=== PATIENT | female | born 1985 | race Caucasian/White ===

== ENCOUNTER 2018-12-10 15:55 | Emergency (ER) | payer MEDICAID ==
[~2018-12-10] VITALS: Ht 152.4 cm; Wt 58.6 kg
[~2018-12-10 15:55] MED LIST: NITR-58 PO; OMEP40CA3 PO; PREN1TAB49 PO
[2018-12-10 16:06] VITALS: Ht 152.4 cm; Wt 58.6 kg
--- NOTE | 2018-12-10 18:35 | ERD ---
ER Documentation Chief Complaint Chief Complaint cough x3 days, abdominal pain 14wks, denies bleeding HPI 33-year-old female in her 14th week of presents with complaint of abdominal pain for the past 3 days. States that the pain is located in the lower left and right quadrant bilaterally. In addition she states she is been having some yellowish vaginal discharge. She also is having dysuria but denies hematuria. Says she had fevers yesterday of 101 but denies any current treatments. LMP was September 11, 2018. Denies any drooling, trismus, vomiting, diarrhea. ROS All systems reviewed and are negative except as per history of present illness. Medications Home Meds Active Scripts Cephalexin* (Keflex*) 500 Mg Capsule, 500 MG PO BID for 14 Days, CAP Prov:SHRUTHI CLAIRE 12/10/18 Nitrofurantoin Monohyd Macrocr* (Macrobid*) 100 Mg Capsr, 100 MG PO BID, #28 CAP Prov:MIRNA,PEDRO C 01/13/15 Omeprazole* (Prilosec*) 40 Mg Capsule.dr, 40 MG PO BID for 30 Days, CAP Prov:MIRNA,PEDRO C 01/13/15 Reported Medications Vits W-Ca,Fe,Fa(<1MG) () 1 Tab Tablet, PO DAILY 11/19/11 Allergies Allergies: Coded Allergies: No Known Drug Allergies (Verified Allergy, 11/19/11) PMhx/Soc Medical and Surgical Hx: pt denies Medical Hx, pt denies Surgical Hx History of Surgery: No Anesthesia Reaction: No Hx Neurological Disorder: No Hx Respiratory Disorders: No Hx Cardiac Disorders: No Hx Psychiatric Problems: No Hx Miscellaneous Medical Probl: No Hx Alcohol Use: No Hx Substance Use: No Hx Tobacco Use: No Smoking Status: Never smoker FmHx Family History: No diabetes, No coronary disease, No other Physical Exam Vitals Vital Signs Date Temp Pulse Resp B/P (MAP) Pulse Ox O2 O2 Flow FiO2 Time Delivery Rate 12/10/18 98.6 62 18 121/65 99 Room Air 21:20 (83) 12/10/18 98.6 68 18 123/56 98 16:06 (78) Physical Exam Const: No acute distress Head: Atraumatic Eyes: Normal Conjunctiva ENT: Normal External Ears, Nose and Mouth. Tonsils are nonedematous erythematous bilaterally with no exudates. Uvula is midline. There are no peritonsillar masses noted. Neck: Full range of motion. No meningismus. Resp: Clear to auscultation bilaterally Cardio: Regular rate and rhythm, no murmurs Abd: Tenderness to palpation in the bilateral lower and right quadrants. Skin: No petechiae or rashes Back: Left-sided CVA tenderness. Ext: No cyanosis, or edema Neur: Awake and alert Psych: Normal Mood and Affect Pelvic: Performed human resources executive assistant present. There was thin white discharge noted in the vaginal canal. There was no cervical motion tenderness. The os was pink without any erythema Result Diagram: 12/10/181850 Results 24 hrs Laboratory Tests Test 12/10/18 18:45 12/10/18 18:51 Urine Color STRAW Urine Clarity CLEAR Urine pH 6.0 Urine Specific [place] 1.004 Urine Ketones NEGATIVE mg/dL Urine Nitrite NEGATIVE mg/dL Urine Bilirubin NEGATIVE mg/dL Urine Urobilinogen NEGATIVE mg/dL Urine Leukocyte Esterase NEGATIVE Blake/ul Urine Microscopic RBC 6 /HPF Urine Microscopic WBC 1 /HPF Urine Squamous Epithelial Cells FEW /HPF Urine Bacteria FEW /HPF Urine Hemoglobin 2+ mg/dL Urine Glucose NEGATIVE mg/dL Urine Total Protein NEGATIVE mg/dl White Blood Count 12.3 10^3/ul Red Blood Count 4.19 10^6/ul Hemoglobin 12.1 g/dl Hematocrit 36.2 % Mean Corpuscular Volume 86.4 fl Mean Corpuscular Hemoglobin 28.9 pg Mean Corpuscular Hemoglobin Concent 33.4 g/dl Red Cell Distribution Width 13.0 % Platelet Count 349 10^3/UL Mean Platelet Volume 10.0 fl Immature Granulocytes % 0.600 % Neutrophils % 67.8 % Lymphocytes % 21.9 % Monocytes % 6.8 % Eosinophils % 2.6 % Basophils % 0.3 % Nucleated Red Blood Cells % 0.0 /100WBC Immature Granulocytes # 0.070 10^3/ul Neutrophils # 8.3 10^3/ul Lymphocytes # 2.7 10^3/ul Monocytes # 0.8 10^3/ul Eosinophils # 0.3 10^3/ul Basophils # 0.0 10^3/ul Nucleated Red Blood Cells # 0.0 10^3/ul Lipase 95 U/L Beta HCG, Quantitative 53529.0 mIU/ml Current Medications Medications Dose Sig/Yves Start Time Status Last (Trade) Ordered Route PRN Stop Time Admin Dose Reason Admin Ceftriaxone 1 gm ONCE ONCE 12/10/18 DC 12/10/18 Sodium IM 21:00 20:59 (Rocephin) 12/10/18 21:01 Lidocaine 5 ml ONCE ONCE 12/10/18 DC 12/10/18 (Xylocaine INJ 21:00 20:58 1% (Mpf)) 12/10/18 21:01 Procedures/MDM DIAGNOSTIC IMAGING REPORT Patient: MAYNOR GARRETT : 1985 Age: 33 Sex: F MR #: [id number] DOS: 12/10/18 1806 Ordering MD: SHRUTHI CLAIRE Location: [facility] Room/Bed: PROCEDURE: US OB. CLINICAL INDICATION: Pelvic/abdominal pain. Clinical estimated gestational age is 12 weeks 6 days with estimated date of delivery 06/18/2019 TECHNIQUE: Transabdominal views of the pelvis are available for review. COMPARISON: No prior studies are available for comparison. FINDINGS: Dandridge-rump length: 6.45 cm heart rate: 157 beats per minute Ultrasound estimated gestational age: 12 weeks 6 days Estimated date of delivery: 06/18/2019 The placenta is anterior. There is no evidence of placental abruption. Neither ovary is seen. No adnexal mass or free intrapelvic fluid is seen. IMPRESSION: 1. Single live intrauterine with an estimated gestational age of 12 weeks 6 days based on ultrasound measurement. RPTAT: HJES .Tirso Bower MD, MD Date Time Electronically viewed and signed by .Tirso Bower MD, MD on 12/10/2018 18:47 .S/ CC: SHRUTHI CLAIRE [phone] MDM: There is some bacteria seen in patients UA so patient will be treated for possible complicated UTI with ceftriaxone and 14-day course of Keflex. Cervical motion tenderness test was negative so I have low suspicion for PID although GC cultures were sent out. In addition wet mount results were all within normal limits. Because of the patient's pelvic pain, heterotopic cannot be ruled out. Therefore, patient was advised to return in 48 hours for repeat beta quant as well as ultrasound. At this point I have low suspicion for PID, ruptured ectopic, appendicitis, ovarian torsion, or any other emergent condition. Patient discharged with strict ER precautions. Patient advised to follow up with PMD. All questions answered at discharge. Departure Diagnosis: Primary Impression: UTI (lower urinary tract infection) Additional Impression: Pelvic pain Condition: Stable SHRUTHI CLAIRE December 10, 2018 18:35
[2018-12-10] MEDS ORDERED: CEPH-443 PO (20:50)
[2018-12-10] MEDS ORDERED: LIDOCAINE 1% (MPF) 5 ML VIAL INJ ONE (21:00)
[2018-12-10] MEDS ORDERED: CEFTRIAXONE 1 GM INJ IM ONE (21:00)
[2018-12-10 21:20] VITALS: BP 121/65; PULSE 62; RESP 18
== END 2018-12-10 21:20 | disposition home or self-care (01) ==
LOC: FTE 15:55
DX: O23.41 Unspecified infection of urinary tract in pregnancy, first trimester (principal); R10.2 Pelvic and perineal pain; Z3A.12 12 weeks gestation of pregnancy
CPT/HCPCS: 36415; 76805; 81001; 83690; 84702; 85025; 86900; 86901; 87086; 87210; 87591; 87880; 96372; J0696; Z7502; Z7610

== ENCOUNTER 2018-12-13 09:02 | Emergency (ER) | payer MEDICAID ==
[~2018-12-13] VITALS: Ht 154.9 cm; Wt 59.0 kg
[~2018-12-13 09:02] MED LIST changes: +CEPH-443 PO
[2018-12-13 09:09] VITALS: Ht 154.9 cm; Wt 59.0 kg
[2018-12-13 13:38] VITALS: BP 110/68; PULSE 78; RESP 18
--- NOTE | 2018-12-13 16:47 | ERD ---
ER Documentation Chief Complaint Chief Complaint RECHECK HPI This is a 33-year-old female patient who presents to emergency room with complaint of bilateral lower abdominal pain. Patient is reportedly 13 to 14 weeks . Patient was here 2 days ago for the same complaint and was instructed to return for reevaluation today. Patient denies bleeding, no cramping, pain occurs when she is coughing or when she makes stretching motions, no fevers, no dysuria. Patient has OB Dr. Preston at [facility] in [place]. , no complications with first . ROS All systems reviewed and are negative except as per history of present illness. Medications Home Meds Active Scripts Cephalexin* (Keflex*) 500 Mg Capsule, 500 MG PO BID for 14 Days, CAP Prov:SHRUTHI CLAIRE 12/10/18 Nitrofurantoin Monohyd Macrocr* (Macrobid*) 100 Mg Capsr, 100 MG PO BID, #28 CAP Prov:MIRNA,PEDRO C 01/13/15 Omeprazole* (Prilosec*) 40 Mg Capsule.dr, 40 MG PO BID for 30 Days, CAP Prov:MIRNA,PEDRO C 01/13/15 Reported Medications Vits W-Ca,Fe,Fa(<1MG) () 1 Tab Tablet, PO DAILY 11/19/11 Allergies Allergies: Coded Allergies: No Known Drug Allergies (Verified Allergy, 11/19/11) PMhx/Soc Medical and Surgical Hx: pt denies Medical Hx History of Surgery: No Anesthesia Reaction: No Hx Neurological Disorder: No Hx Respiratory Disorders: No Hx Cardiac Disorders: No Hx Psychiatric Problems: No Hx Miscellaneous Medical Probl: No Hx Alcohol Use: No Hx Substance Use: No Hx Tobacco Use: No FmHx Family History: No diabetes, No coronary disease, No other Physical Exam Vitals Vital Signs Date Temp Pulse Resp B/P (MAP) Pulse Ox O2 O2 Flow FiO2 Time Delivery Rate 12/13/18 78 18 110/68 99 Room Air 13:38 (82) 12/13/18 98.2 66 19 110/61 96 09:09 (77) Physical Exam Const: No acute distress Head: Atraumatic Eyes: Normal Conjunctiva ENT: Normal External Ears, Nose and Mouth. Neck: Full range of motion. No meningismus. Resp: Clear to auscultation bilaterally Cardio: Regular rate and rhythm, no murmurs Abd: Soft, tender at RLQ/LLQ, non distended. Normal bowel sounds Skin: No petechiae or rashes Back: No midline or flank tenderness Ext: No cyanosis, or edema Neur: Awake and alert Psych: Normal Mood and Affect Result Diagram: 12/13/18 1113 Results 24 hrs Laboratory Tests Test 12/13/18 11:13 12/13/18 11:14 White Blood Count 10.7 10^3/ul Red Blood Count 4.15 10^6/ul Hemoglobin 11.9 g/dl Hematocrit 35.6 % Mean Corpuscular Volume 85.8 fl Mean Corpuscular Hemoglobin 28.7 pg Mean Corpuscular Hemoglobin Concent 33.4 g/dl Red Cell Distribution Width 13.1 % Platelet Count 327 10^3/UL Mean Platelet Volume 10.1 fl Immature Granulocytes % 0.600 % Neutrophils % 72.6 % Lymphocytes % 18.9 % Monocytes % 5.8 % Eosinophils % 1.7 % Basophils % 0.4 % Nucleated Red Blood Cells % 0.0 /100WBC Immature Granulocytes # 0.060 10^3/ul Neutrophils # 7.8 10^3/ul Lymphocytes # 2.0 10^3/ul Monocytes # 0.6 10^3/ul Eosinophils # 0.2 10^3/ul Basophils # 0.0 10^3/ul Nucleated Red Blood Cells # 0.0 10^3/ul Beta HCG, Quantitative 74722.0 mIU/ml Urine Color YELLOW Urine Clarity SLIGHTLY CLOUDY Urine pH 6.0 Urine Specific [place] 1.024 Urine Ketones TRACE mg/dL Urine Nitrite NEGATIVE mg/dL Urine Bilirubin NEGATIVE mg/dL Urine Urobilinogen NEGATIVE mg/dL Urine Leukocyte Esterase NEGATIVE Blake/ul Urine Microscopic RBC 3 /HPF Urine Microscopic WBC 1 /HPF Urine Squamous Epithelial Cells FEW /HPF Urine Mucus FEW /HPF Urine Hemoglobin NEGATIVE mg/dL Urine Glucose NEGATIVE mg/dL Urine Total Protein NEGATIVE mg/dl Procedures/MDM This is a 33-year-old female patient who presents to emergency room with complaint of bilateral lower abdominal pain. ED COURSE: The patient was stable throughout ED course. I kept the patient and/or family informed of laboratory and diagnostic imaging results throughout the ED course. DIAGNOSTIC IMAGING: Read by radiologist. IMPRESSION: Single live intrauterine gestation of 14 weeks 0 days by ultrasound criteria. Ovaries not visualized. MDM: Evaluation in comparison of lab work and ultrasounds today compared to 12/10/18 shows measurable gestational age closer to patient's LMP. There does not seem to be any threat to patient's at this time. It is still unknown why patient is having pain at RLQ/LLQ. Patient has been instructed to rest, limit exertion, and follow-up closely with her OB. Patient remained stable throughout the ER course. Patient presents without vaginal bleeding but with bilateral lower pelvic pain today. Differential includes early normal , ectopic , failed . She will discharged home with recommendations for 2-day follow-up with her OB. She is to return sooner for fevers, hemorrhaging, new worsening symptoms. Current signs or symptoms do not suggest appendicitis, acute surgical abdomen, additional concerning signs or symptoms or conditions. The patient was stable with no new complaints during the ER course. Clinically, there is no current evidence to suggest meningitis, sepsis, acute abdomen, pneumonia, stroke, acute coronary syndrome, pulmonary embolism, aortic dissection or any other emergent condition appearing to require further evaluation or hospitalization. Patient counseled regarding my diagnostic impression and care plan. Prior to discharge all questions answered. Pt agrees with treatment plan and understands strict return precautions. DISPOSITION: The patient has been discharge home to follow-up with community physician. Departure Diagnosis: Primary Impression: , first, obstetrical care Condition: Stable Patient Instructions: : Body Changes Referrals: [facility] YOU HAVE RECEIVED A MEDICAL SCREENING EXAM AND THE RESULTS INDICATE THAT YOU DO NOT HAVE A CONDITION THAT REQUIRES URGENT TREATMENT IN THE EMERGENCY DEPARTMENT. FURTHER EVALUATION AND TREATMENT OF YOUR CONDITION CAN WAIT UNTIL YOU ARE SEEN IN YOUR DOCTORS OFFICE WITHIN THE NEXT 1-2 DAYS. IT IS YOUR RESPONSIBILITY TO MAKE AN APPOINTMENT FOR FOLOW-UP CARE. IF YOU HAVE A PRIMARY DOCTOR --you should call your primary doctor and schedule an appointment IF YOU DO NOT HAVE A PRIMARY DOCTOR YOU CAN CALL OUR PHYSICIAN REFERRAL HOTLINE AT IF YOU CAN NOT AFFORD TO SEE A PHYSICIAN YOU CAN CHOSE FROM THE FOLLOWING [facility] [address] [facility] [address] [facility] [address] [facility] [address] [facility] [address] [facility]. [facility] [address] Additional Instructions: Thank you very much for allowing us to participate in your care. Your health and safety is our top priority at [facility]. Call your primary care doctor TOMORROW for an appointment during the next 2-4 days and bring all the information and medications prescribed. Have prescriptions filled and follow precisely the directions on the label. If the symptoms get worse and your provider is unavailable, return to the Emergency Department immediately. CALL YOUR CUSTOM MOTORCYCLE PAINTER TODAY FOR FOLLOW-UP APPOINTMENT. INCREASE REST AND HYDRATION. RETURN TO THE ED WITH FEVER, SEVERE PAIN, VAGINAL BLEEDING LAURA NICKERSON NP December 13, 2018 16:47
== END 2018-12-13 13:39 | disposition home or self-care (01) ==
LOC: FTE 09:02
DX: O26.891 Other specified pregnancy related conditions, first trimester (principal); R10.2 Pelvic and perineal pain; R10.31 Right lower quadrant pain; R10.32 Left lower quadrant pain; Z3A.14 14 weeks gestation of pregnancy
CPT/HCPCS: 36415; 76805; 81001; 84702; 85025; Z7502; 81003